=== PATIENT | female | born 1965 | race Caucasian/White ===

== ENCOUNTER 2018-09-04 13:09 | Outpatient (CLI) | payer MEDICARE ==
--- NOTE | 2018-09-04 14:45 | RAD ---
CERVICAL SPINE SIX VIEWS: History: Neck pain with radiation to left arm. FINDINGS: Cervical vertebrae maintain height. There is a slight posterior listhesis at C3-4 measured at 2-3 mm. This does not appear to significantly change with flexion or extension. The disc spaces are preserved. Mild degenerative spurring. Mild facet hypertrophy. IMPRESSION: Mild degenerative changes. Slight posterior listhesis at C3-4. POS: [facility]
--- NOTE | 2018-09-04 14:49 | RAD ---
LUMBAR SPINE TOTAL OF 4 VIEWS: HISTORY: Low back pain. FINDINGS: Slight curvature to the left with apex at L2 in the AP view. In the lateral view, the lumbar vertebr ae maintain normal height. There is slight posterior listhesis at L2-3 and L3-4 with slight loss of disk space at both of these levels. Prominent facet hypertrophy is noted at L3-4, L4-5, and L5-S1. No evidence of anterolisthesis. No s ignificant change in alignment with flexion or extension. IMPRESSION: Mild to moderate degenerative change with prominent facet hypertrophy. The facet hypertrophy appears to produce central canal stenosis at L3-4, L4-5 levels. Slight posterior listhesis with disk space loss at L2-3 and L3-4 as noted. POS: [facility]
--- NOTE | 2018-09-04 15:15 | MRI ---
MRI CERVICAL SPINE WITHOUT CONTRAST: Technique: Multiplanar, multisequence MRI images were obtained of the cervical spine. Indication: Neck pain, radiation to left upper extremity. FINDINGS: Cervical vertebra maintain normal height and alignment. The disc spaces are preserved. Vertebral body signal appears normally maintained. C3-4: Mild disc bulge and spondylosis flattens the thecal sac and mildly effaces the anterior subarac hnoid space. Mild right foraminal narrowing secondary to facet and uncinate hypertrophy. C4-5: No significant disc bulge or spondylosis. Mild right foraminal encroachment from facet and unci nila hypertrophy. C5-6: No significant disc bulge or spondylosis. Anterior subarachnoid space is preserved. Mild right foraminal narrowing due to facet and uncinate hypertrophy. C6-7: No disc bulge or spondylosis. No foraminal narrowing. C7-T1: Broad based disc bulge flattens the thecal sac. This mildly effaces the anterior subarachnoid space but does not impinge on the cord. No evidence of significant foraminal stenosis. Cord signal appears normal. IMPRESSION: 1. Broad based bulge at C7-T1 flattens the thecal sac and mildly effaces the anterior subarachnoid sp allegra. 2. Mild spondylosis and disc bulge at C3-4 as described above. POS: [facility]
--- NOTE | 2018-09-04 15:46 | MRI ---
LUMBAR MRI: HISTORY: Lumbar radiculopathy and low back pain, M54.16 and M54.5. FINDINGS: Multiplanar, multisequence noncontrast-enhanced MRI images of lumbar spine obtained. T12-L1, L1-2: Unremarkable. L2-3: Mild disk desiccation is seen. There is a fatty filum terminale. No significant degree of ce ntral or neural foraminal narrowing seen. L3-4: Mild bilateral facet and ligamentum flavum hypertrophy is seen. No significant degree of cent ral or neural foraminal narrowing is seen. L4-5: Disk desiccation is seen. There is a broad-based disk bulge with bilateral facet hypertrophy. O significant degree of central or neural foraminal narrowing is seen. L5-S1: Unremarkable. IMPRESSION: 1. Fatty filum terminale. 2. No significant degree of central or neural foraminal narrowing seen. POS: [facility]
== END 2018-09-04 13:10 | disposition home or self-care (01) ==
LOC: TBSIIMAG 13:09
PROVIDERS: ATTEND Surgery
DX: M47.26 Other spondylosis with radiculopathy, lumbar region (principal); M47.22 Other spondylosis with radiculopathy, cervical region; M54.5 Low back pain; M54.2 Cervicalgia; M50.13 Cervical disc disorder with radiculopathy, cervicothoracic region; M50.11 Cervical disc disorder with radiculopathy, high cervical region; M48.061 Spinal stenosis, lumbar region without neurogenic claudication; M43.16 Spondylolisthesis, lumbar region; M43.12 Spondylolisthesis, cervical region
CPT/HCPCS: 72050; 72110; 72141; 72148